=== PATIENT | female | born 1995 | race Caucasian/White ===

== ENCOUNTER 2017-03-12 22:16 | Inpatient (IN) | payer OTHER ==
[~2017-03-12] VITALS: Ht 160 cm; Wt 49.9 kg
[2017-03-12 22:51] VITALS: Ht 160 cm; Wt 49.9 kg
[2017-03-13 05:51] LABS: BASOPHIL % 0.2 % (0-2); PLATELET COUNT 300 x10^3mcL (130-400); RED CELL DISTRIBUTION WIDTH 12.5 % (11.5-14.5)
[2017-03-13 06:11] LABS: CALCIUM 8.1 mg/dL (8.5-10.1); CARBON DIOXIDE 20.9 mmol/L (21-32); CHLORIDE SERUM 106 mmol/L (98-107); CREATININE SERUM 0.6 mg/dL (0.6-1.0); GFR1 > 60 mL/min; GLUCOSE SERUM 81 mg/dL (74-106); SODIUM SERUM 140 mmol/L (136-145)
[2017-03-13 06:17] LABS: ALBUMIN 3.5 g/dL (3.4-5.0); ALKALINE PHOSPHATASE 48 U/L (46-116); ALT/SGPT 26 U/L (14-59); AST/SGOT 12 U/L (15-37); BILIRUBIN TOTAL 0.6 mg/dL (0.20-1.00); LIPASE 120 IU/L (73-393); TOTAL PROTEIN, SERUM 7.9 g/dL (6.4-8.2)
[2017-03-13 08:48] LABS: UA SPECIFIC GRAVITY >=1.030 (1.005-1.035); microscopic required? YES; urine erythrocyte TRACE (NEGATIVE)
[2017-03-13 09:20] LABS: FREE T4 1.11 ng/dL (0.76-1.46)
[2017-03-13 09:48] LABS: AMPHETAMINE QUAL UR NONE DETECTED (NEG <=1000)
[2017-03-13 10:37] LABS: MAGNESIUM 1.9 mg/dL (1.8-2.4); PHOSPHOROUS 3.6 mg/dL (2.5-4.9)
[2017-03-13 10:43] LABS: CHOLESTEROL/HDL RATIO 2.3
[2017-03-13 14:32] VITALS: BP 108/67
[2017-03-13 14:52] VITALS: BP 101/68
[2017-03-13 20:04] VITALS: BP 102/67
[2017-03-14 05:42] VITALS: BP 92/56
[2017-03-14 06:52] LABS: BASOPHIL % 0.3 % (0-2); PLATELET COUNT 252 x10^3mcL (130-400); RED CELL DISTRIBUTION WIDTH 12.2 % (11.5-14.5)
[2017-03-14 07:18] LABS: CALCIUM 7.9 mg/dL (8.5-10.1); CHLORIDE SERUM 108 mmol/L (98-107); CREATININE SERUM 0.6 mg/dL (0.6-1.0); GFR1 > 60 mL/min; GLUCOSE SERUM 86 mg/dL (74-106); POTASSIUM SERUM 3.6 mmol/L (3.5-5.1); SODIUM SERUM 132 mmol/L (136-145)
[2017-03-14 09:12] VITALS: BP 113/71
[2017-03-14] MEDS ORDERED: DICYCLOMIN10 MG/5 ML PO (10:21)
[2017-03-14] MEDS ORDERED: METAMUCIL FIBE3.4 GM PO (10:24)
[2017-03-14] MEDS ORDERED: LOPERAMIDE HCL2 M1 PO (10:28)
== END 2017-03-14 11:44 | disposition home or self-care (01) | DRG 391 ==
LOC: ED 22:16 → DU 03-13 08:31
PROVIDERS: Emergency Medicine; Student in an Organized Health Care Education/Training Program
DX: A08.4 Viral intestinal infection, unspecified (principal); N17.0 Acute kidney failure with tubular necrosis; E86.0 Dehydration; E83.51 Hypocalcemia
CPT/HCPCS: 83880; 84439; 87804; J1885; J2270; J2543; J2765; J7030; Q9967